=== PATIENT | male | born 1985 | race American Indian/Alaskan Native ===

== ENCOUNTER 2017-02-15 18:07 | Emergency (ER) | payer OTHER ==
[2017-02-16] MEDS ORDERED: MOTRIN PO ONE (03:18)
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
--- NOTE | 2017-02-16 05:10 | XRay Report ---
FINAL REPORT EXAM: XR SPINE THORACIC 2V HISTORY: upper back pain COMPARISONS: FINDINGS: Three views thoracic spine Thoracic kyphosis is within normal limits. Vertebral body heights intervertebral disc spaces are preserved. No fractures. Incomplete evaluation of the chest is unremarkable. IMPRESSION: Unremarkable thoracic spine radiographs.
[2017-02-16 05:47] VITALS: BP 129/63
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
== END 2017-02-16 06:33 | disposition home or self-care (01) ==
LOC: ED 18:07
DX: S39.012A Strain of muscle, fascia and tendon of lower back, initial encounter (principal); S86.912A Strain of unspecified muscle(s) and tendon(s) at lower leg level, left leg, initial encounter; S86.911A Strain of unspecified muscle(s) and tendon(s) at lower leg level, right leg, initial encounter; V89.2XXA Person injured in unspecified motor-vehicle accident, traffic, initial encounter; Y93.89 Activity, other specified; Y92.89 Other specified places as the place of occurrence of the external cause; Y99.8 Other external cause status
CPT/HCPCS: 72070; 99284